=== PATIENT | female | born 1990 | race Caucasian/White ===

== ENCOUNTER → 2021-03-07 | Outpatient (CLI) | payer BC | END | disposition home or self-care (01) | LOC: LABWHC1 16:12 | PROVIDERS: ATTEND Obstetrics & Gynecology | DX: O20.0 Threatened abortion (principal); Z3A.00 Weeks of gestation of pregnancy not specified | CPT/HCPCS: 36415; 84702 ==

== ENCOUNTER → 2021-03-09 | Outpatient (CLI) | payer BC | END | disposition home or self-care (01) | LOC: LABWHC1 07:23 | PROVIDERS: ATTEND Obstetrics & Gynecology | DX: O20.0 Threatened abortion (principal); Z3A.00 Weeks of gestation of pregnancy not specified | CPT/HCPCS: 36415; 84702 ==

== ENCOUNTER → 2021-03-16 | Outpatient (CLI) | payer BC | END | disposition home or self-care (01) | LOC: LABWHC1 07:11 | PROVIDERS: ATTEND Obstetrics & Gynecology | DX: O03.9 Complete or unspecified spontaneous abortion without complication (principal); Z3A.00 Weeks of gestation of pregnancy not specified | CPT/HCPCS: 36415; 84702 ==

== ENCOUNTER → 2021-08-03 | Outpatient (CLI) | payer OTHER ==
--- NOTE | 2021-08-03 15:05 | XR ---
EXAMINATION TYPE: XR wrist complete LT, XR hand complete LT DATE OF EXAM: 08/03/2021 CLINICAL HISTORY: Fall injury with pain worse over fifth finger. TECHNIQUE: Frontal, lateral and oblique images of the left wrist and hand are obtained. A fourth lef t scaphoid view was acquired. COMPARISON: None. FINDINGS: No acute fracture or dislocation in the left wrist. The carpal joint spaces are maintained. Overlying soft tissues are unremarkable. There is acute comminuted slightly displaced fracture through proximal metadiaphysis fifth proximal p halanx. There is dorsal angulation of distal fracture fragment. Mild associated soft tissue swelling. Joint spaces in the left hand are maintained. IMPRESSION: There is acute comminuted minimally displaced fracture proximal metadiaphysis fifth prox imal phalanx.
== END | disposition home or self-care (01) ==
LOC: RADXRMAIN 14:28
PROVIDERS: ATTEND Emergency Medicine
DX: S62.617A Displaced fracture of proximal phalanx of left little finger, initial encounter for closed fracture (principal); S63.63 Sprain of interphalangeal joint of other and unspecified finger(s); X58.XXXA Exposure to other specified factors, initial encounter

== ENCOUNTER 2021-08-17 09:56 | Day surgery (SDC) | payer BC, OTHER ==
[2021-08-15 10:43] VITALS: BMI 25.7
--- NOTE | 2021-08-17 06:26 | P.HPOR ---
History of Present Illness H&P Date: 08/17/21 Chief Complaint: Left small finger proximal phalanx fracture Subjective: This is a 31 year old female that presents today for initial evaluation regarding a left small finger injury that occurred on 08/03/21. She was at work and going down a slide when her left small finger got jammed and had immediate pain and swelling. She has been in a splint since her injury after being seen at [facility]. She has been unable to bend the finger since the injury. She denies any other areas of pain or prior injury. Physical Examination: LUE: AIN/PIN/Radial/Ulnar/Median motor intact. Radial/Ulnar/Median SILT. 2+/4 Radial/Ulnar pulses palpated. 5/5 APB, 5/5 FDI. Negative Finkelsteins, negative CMC grind, negative Durkan's compression. TTP over small finger proximal phalanx with bruising and swelling. Unable to make a full fist. Imaging: X-Rays of the left small finger demonstrate a comminuted, displaced and dorsally angulated proximal phalanx fracture. Impression: 1.) Left small finger proximal phalanx fracture, displaced. Plan: Diagnosis and treatment options were discussed with the patient. I recommend surgical intervention due to the amount of displacement, angulation and rotational deformity present. Risks and benefits of surgery including bleeding, infection, damage to surrounding tissue, need for further surgery, possible need to convert to open procedure, residual numbness were discussed and the patient wished to go forward with surgery. Temporary pins will likely be in place for 4 weeks until fracture consolidation and will be removed in office, range of motion will then be initiated at that time. She is currently working and states she will be able to work in the splint. Surgery will be scheduled in the near future. -Conrad Hameed DO Orthopedic Hand/Upper Extremity Surgeon Past Medical History Past Medical History: Asthma Additional Past Medical History / Comment(s): hx sports induced asthma, fx left little finger 08/03/21-has splint on History of Any Multi-Drug Resistant Organisms: None Reported Past Surgical History: Ear Surgery Additional Past Surgical History / Comment(s): D&C 06/2021 for missed ab Past Anesthesia/Blood Transfusion Reactions: Previous Problems w/ Anesthesia, Motion Sickness Additional Past Anesthesia/Blood Transfusion Reaction / Comment(s): took long time to come out Smoking Status: Never smoker - Past Family History Mother Family Medical History: No Reported History Medications and Allergies Home Medications Medication Instructions Recorded Confirmed Type Ibuprofen 200 mg PO Q8H PRN 08/15/21 08/15/21 History Pnv No.95/Ferrous Fum/Folic AC 1 each PO DAILY 08/15/21 08/15/21 History [ Multivitamin Tablet] Allergies Allergy/AdvReac Type Severity Reaction Status Date / Time No Known Allergies Allergy Verified 08/15/21 10:35 Physical Examination Osteopathic Statement: *. No significant issues noted on an osteopathic structural exam other than those noted in the History and Physical/Consult.
[~2021-08-17 09:56] MED LIST: DEXAMETHASONE SOD PHOSPHATE 4 MG/ML 1 ML VIAL IV ONE; HYDROmorphone 0.5 MG/0.5 ML SYRINGE IVP PRN; LACTATED RINGERS 1,000 ML IV SCH; LIDOCAINE 1% (10MG/ML) FOR IV START INTRADERMA PRN; MIDAZOLAM 2 MG/2 ML VIAL IV PRN; ONDANSETRON 4 MG/2 ML VIAL IVP ONE
[2021-08-17] MEDS ORDERED: SCOPOLAMINE 1 MG/72 HR PATCH TRANSDERM ONE (11:01)
[2021-08-17] MEDS ORDERED: ROPIVACAINE 5 MG/ML 30 ML VIAL ONE (11:06)
[2021-08-17] MEDS ORDERED: DEXAMETHASONE SOD PHOSPHATE 4 MG/ML 1 ML VIAL ONE (11:06)
[2021-08-17] MEDS ORDERED: LIDOCAINE 1% INJ 10MG/ML (20 ML MDV) ONE (11:06)
[2021-08-17] MEDS ORDERED: PROPOFOL 10 MG/ML 20 ML VIAL IV ONE (11:06)
[2021-08-17] MEDS ORDERED: fentaNYL (PF) 50 MCG/ML 2 ML AMP ONE (11:06)
[2021-08-17] MEDS ORDERED: SODIUM CHLORIDE 0.9% 50 ML with ceFAZolin 2,000 MG IV ONE ×2 (11:20)
--- NOTE | 2021-08-17 12:10 | XR ---
EXAMINATION TYPE: XR finger LT, FL guidance operating room DATE OF EXAM: 08/17/2021 CLINICAL HISTORY: Left finger fracture. TECHNIQUE: Fluoroscopy. Intraoperative views left finger. COMPARISON: Outside left finger x-ray 3 days ago. FINDINGS: Fluoroscopic guidance was provided during open reduction and external fixation procedure p erformed by Dr. Hameed. A total of 22 seconds of fluoroscopic time was utilized during the procedure and 2 spot images was acquired. Intraoperative images of acquired show placement of 2 K wires through comminuted displaced fracture p roximal metadiaphysis fifth proximal phalanx. Satisfactory improved alignment is seen on intraoperati ve images obtained after reduction and fixation. IMPRESSION: As Above.
[2021-08-17 12:21] VITALS: TEMP 97.1
[2021-08-17 12:43] VITALS: RESP 16
[2021-08-17 13:13] VITALS: BP 129/82; PULSE 84
--- NOTE | 2021-08-18 14:25 | P.OP ---
Date of Procedure: 08/17/21 Preoperative Diagnosis: Left small finger proximal phalanx fracture Postoperative Diagnosis: Same Procedure(s) Performed: Closed reduction percutaneous pinning of left small finger proximal phalanx fracture Implants: 0.045 K-wire x2 Anesthesia: PHYLLIS, regional Surgeon: Conrad Hameed Estimated Blood Loss (ml): 0 Pathology: none sent Condition: stable Disposition: PACU Description of Procedure: This is a 31 year old female who sustained a displaced and angulated left small finger proximal phalanx that presents today for surgical intervention. Risks and benefits of surgery were discussed with the patient including bleeding, damage to surrounding tissue, infection, need for further surgery as well as risks of anesthesia including pulmonary embolism and even and the patient wished to proceed with surgical intervention. The patient was seen in the pre-operative area by myself. Consent and H&P were completed and updated. The correct extremity was marked in the pre-operative area by myself and all other questions were answered. Operative Narrative: The patient was brought to the operating room by the department of anesthesia. They remained on the portable stretcher and a rolling hand table was brought to the side of the operative extremity. Pre-operative time out was performed indicating the correct patient, procedure and laterality. All in the room agreed. Pre-operative antibiotics were given prior to skin incision. The patient was then drifted off to sleep by the department of anesthesia. A nonsterile tourniquet was then applied to the operative extremity and the left upper extremity was then prepped and draped in normal sterile fashion. Closed reduction maneuver was performed and under live flouroscopy reduction of previously seen dorsal angulation was corrected. Coronal and saggital alignment was corrected with manipulation. Two 0.045 K-wire were then inserted at the ulnar and radial proximal phalanx base crossing the fracture line with purchase in the distal cortex of the proximal phalanx, no articular penetration and correct intramedullary placement of pins was appreciated when checked on x-ray. K-wire ends were then bent and cut. Sterile dressing consisting of adaptic, 4x4s, and an ulnar gutter splint in the intrinsic plus position was applied. The patient was then woken by the department of anesthesia and transferred to PACU in stable condition. Post Op Plan: Patient will be seen 10-14 days post operatively and post operative dressing/splint can be taken down and new ulnar gutter splint can be applied. We will plan to keep pins in for 4 weeks and will plan to pull k-wire in office as previously discussed with the patient followed by immediate range of motion after pins are pulled. She may return to work in the splint but should not bear any weight with the hand while in the splint. Conrad Hameed D.O. Orthopedic Hand/Upper Extremity Surgeon
--- NOTE | 2021-08-19 21:19 | P.ANPRN ---
Procedure Note - Anesthesia - Nerve Block Performed Left Supraclavicular Single Time Out Performed: Yes Date of Procedure: 08/17/21 Procedure Start Time: 10:51 Procedure Stop Time: 10:56 Location of Patient: PreOp Indication: Acute Post-Operative Pain, Requested by Surgeon Sedation Type: Sedate with meaningful contact maintained Preparation: Sterile Prep Position: Supine Needle Types: Pajunk Needle Gauge: 21 Ultrasound used to visualize needle placement: Yes Ultrasound used to observe medication spread: Yes Blood Aspirated: No Pain Paresthesia on Injection Noted: No Resistance on Injection: Normal Image Stored and Saved: Yes Events: Uneventful and Well Tolerated (Ropivacaine 0.5% 20 mL plus dexamethasone 4 mg)
== END 2021-08-17 13:50 | disposition home or self-care (01) ==
LOC: OR 09:56
PROVIDERS: ATTEND Orthopaedic Surgery Hand Surgery
DX: S62.617A Displaced fracture of proximal phalanx of left little finger, initial encounter for closed fracture (principal); J45.909 Unspecified asthma, uncomplicated
CPT/HCPCS: 26735; 81025; 64415; 76942; 73140; C1713; J2250; J1100; J2405; J0690; J2001; J3010; J2795; J2704

== ENCOUNTER 2022-07-23 05:55 | Inpatient (IN) | payer BC ==
--- NOTE | 2022-07-22 19:46 | P.HPOB ---
History of Present Illness H&P Date: 07/22/22 Chief Complaint: Induction of labor This is a 32 y.o. female, 2, para 0, with an estimated date of confinement of 07/18/2022, estimated gestational age of 40-5/7 weeks, who presents for induction of labor due to post-dates. She complains of irregular contractions and sciatic pain. course has been essentially uncomplicated. Last ultrasound on 07/17/2022 showed estimated weight of 9#1oz (4117gm)(>90%). labs: Hepatitis B surface antigen-neg RPR-NR Rubella-immune Blood type-A neg Antibody screen-neg HIV-NR Hemoglobin-13.7 Random glucose-74 Rhogam given at 28 weeks 1 hr. GTT-117 GBS-neg OB Hx: . History of 1 miscarriage, s/p D&C. Mortgage Loan Underwriter Hx: No history of STDs Social Hx: . Works as teacher. Review of Systems Constitutional: Denies chills, Denies fever Eyes: denies blurred vision, denies pain Ears, nose, mouth and throat: Denies headache, Denies sore throat Cardiovascular: Denies chest pain, Denies shortness of breath Respiratory: Denies cough Gastrointestinal: Reports abdominal pain (irregular contractions) Genitourinary: Reports pelvic pain, Reports Musculoskeletal: Reports low back pain Neurological: Denies numbness, Denies weakness Psychiatric: Reports anxiety Past Medical History Past Medical History: Asthma Additional Past Medical History / Comment(s): hx sports induced asthma, fx left little finger 08/03/21-has splint on History of Any Multi-Drug Resistant Organisms: None Reported Past Surgical History: Ear Surgery Additional Past Surgical History / Comment(s): D&C 06/2021 for missed ab Past Anesthesia/Blood Transfusion Reactions: Previous Problems w/ Anesthesia, M otion Sickness Additional Past Anesthesia/Blood Transfusion Reaction / Comment(s): took long time to come out Past Psychological History: PTSD (Her mom & brother were killed in a car accident that she was also a passenger in) Smoking Status: Never smoker Past Alcohol Use History: None Reported Past Drug Use History: None Reported - Past Family History Mother Family Medical History: No Reported History Sister(s) Additional Family Medical History / Comment(s): Endometriosis Medications and Allergies Home Medications Medication Instructions Recorded Confirmed Type Pnv No.95/Ferrous Fum/Folic AC 1 each PO DAILY 08/15/21 08/17/21 History [ Multivitamin Tablet] Allergies Allergy/AdvReac Type Severity Reaction Status Date / Time No Known Allergies Allergy Verified 08/17/21 10:25 Exam Osteopathic Statement: *. No significant issues noted on an osteopathic structural exam other than those noted in the History and Physical/Consult. HEENT: within normal limits Heart: regular rate and rhythm Lungs: clear to auscultation bilaterally Abdomen: , non-tender Cervix: 1 cm/70%/-2 heart tones: 140's by doppler Extremities: neg. Jim's Assessment and Plan (1) 40 weeks gestation of Status: Acute Code(s): Z3A.40 - 40 WEEKS GESTATION OF SNOMED Code(s): 50321105 Plan: Proceed with oxytocin induction of labor. Expectant management. Epidural anesthesia if desired.
[2022-07-23] MEDS: LACTATED RINGERS 1,000 ML IV SCH ×3 (06:15→23:22)
[2022-07-23] MEDS ORDERED: TRANEXAMIC ACID IN NACL,ISO-OS 1,000 MG in EMPTY BAG 1 BAG IV PRN (06:18)
[2022-07-23] MEDS ORDERED: OXYTOCIN 10 UNIT/ML 1 ML VIAL IM PRN (06:18)
[2022-07-23] MEDS ORDERED: TERBUTALINE 1 MG/ML VIAL SQ PRN (06:18)
[2022-07-23] MEDS ORDERED: miSOPROStoL 200 MCG TAB PO PRN (06:18)
[2022-07-23] MEDS ORDERED: LIDOCAINE 1% (10MG/ML) FOR IV START INTRADERMA PRN (06:18)
[2022-07-23] MEDS ORDERED: OXYTOCIN 30 UNITS/500 ML NS 30 UNIT in SALINE 1 500ML.BAG IV SCH (06:18)
[2022-07-23] MEDS ORDERED: LIDOCAINE 0.5% (PF) 5 MG/ML (50 ML SDV) SQ PRN (06:18)
[2022-07-23] MEDS ORDERED: CARBOPROST TROMETHAMINE 250 MCG/ML 1 ML AMP IM PRN (06:18)
[2022-07-23] MEDS ORDERED: METHYLERGONOVINE 0.2 MG/ML 1 ML AMP IM PRN (06:18)
[2022-07-23 06:34] LABS: Basophils # (A) 0.1 k/uL (0-0.2); Basophils % (A) 1 %; Eosinophils # (A) 0.1 k/uL (0-0.7); Eosinophils % (A) 1 %; HCT 37.8 % (34.0-46.0); HGB 12.9 gm/dL (11.4-16.0); Lymphocytes # (A) 2.1 k/uL (1.0-4.8); Lymphocytes % (A) 23 %; MCH 30.2 pg (25.0-35.0); MCHC 34.2 g/dL (31.0-37.0); MCV 88.2 fL (80.0-100.0); Mean Platelet Volume 8.6; Monocytes # (A) 0.4 k/uL (0-1.0); Monocytes % (A) 4 %; Neutrophils # (A) 6.1 k/uL (1.3-7.7); Neutrophils % (A) 69 %; Platelet Count 209 k/uL (150-450); RBC 4.29 m/uL (3.80-5.40); RDW 13.1 % (11.5-15.5); WBC 8.9 k/uL (3.8-10.6)
[2022-07-23] MEDS ORDERED: BUTORPHANOL 1 MG/ML 1 ML VIAL IV PRN (11:08)
[2022-07-23] MEDS ORDERED: ROPIVACAINE 5 MG/ML 20 ML AMPULE ONE (12:48)
[2022-07-23] MEDS ORDERED: SODIUM CHLORIDE 0.9% 100 ML BAG ONE (12:48)
[2022-07-23] MEDS ORDERED: fentaNYL (PF) 50 MCG/ML 5 ML AMP ONE (12:48)
--- NOTE | 2022-07-23 23:06 | P.PROBDLV ---
Vaginal Delivery Note - . Vaginal Delivery Note: The patient did receive epidural anesthesia during labor. She underwent oxytocin induction of labor with artificial rupture membranes with clear fluid noted. Once reaching complete dilation she began pushing. She pushed for approximately 2-1/2 hours. 's head came to a crown. She did have an episode where heart tones went to the 90s and stayed that way for a couple minutes. At this point perineum was anesthetized with 1% lidocaine and a midline episiotomy was cut. With one further push, the 's head delivered across the perineum followed by the anterior shoulder. Nose and mouth were bulb suctioned. was placed on mother's abdomen and then cord was clamped and cut. Infant was taken to warmer for evaluation. A viable female was noted with scores of 7 at 1 minute and 8 at 5 minutes and infant weight of 8 pounds 2.5 ounces. Placenta delivered shortly thereafter, intact, with a three-vessel cord. Uterus contracted fairly well after oxytocin was given and uterine massage was carried out. Perineum showed a midline episiotomy with no further extension. This area was anesthetized with 1% lidocaine and sutured with 3-0 and 2-0 Vicryl suture in the usual multilayer fashion. Estimated blood loss is approximately 200 mL's. Both mother and are in stable condition.
[2022-07-23] MEDS ORDERED: diphenhydrAMINE 50 MG/ML 1 ML VIAL IVP PRN ×2 (23:15)
[2022-07-23] MEDS ORDERED: diphenhydrAMINE 50 MG CAP PO PRN (23:15)
[2022-07-23] MEDS ORDERED: ZOLPIDEM 5 MG TAB PO PRN (23:15)
[2022-07-23] MEDS ORDERED: BENZOCAINE/MENTHOL SPRAY 1 GM/SPRAY AEROSOL TOPICAL PRN (23:15)
[2022-07-23] MEDS ORDERED: diphenhydrAMINE 25 MG CAP PO PRN (23:15)
[2022-07-23] MEDS ORDERED: LANOLIN CREAM 5 GM TUBE TOPICAL PRN (23:15)
[2022-07-23] MEDS ORDERED: HYDROCORTISONE 2.5% RECTAL CREAM 30 GM TUBE RECTAL PRN (23:15)
[2022-07-23] MEDS ORDERED: SIMETHICONE 80 MG CHEWABLE PO PRN (23:15)
[2022-07-24] MEDS: IBUPROFEN 600 MG TAB PO PRN ×4 (02:00→23:17)
[2022-07-24] MEDS: ACETAMINOPHEN TAB 325 MG TAB PO PRN (06:21)
[2022-07-24 07:14] LABS: Basophils % (A) 0 %; Eosinophils % (A) 0 %; HGB 11.6 gm/dL (11.4-16.0); Lymphocytes # (A) 1.5 k/uL (1.0-4.8); Lymphocytes % (A) 6 %; MCH 30.4 pg (25.0-35.0); MCHC 34.2 g/dL (31.0-37.0); MCV 89.1 fL (80.0-100.0); Mean Platelet Volume 8.9; Monocytes # (A) 0.7 k/uL (0-1.0); Monocytes % (A) 3 %; Neutrophils # (A) 20.9 k/uL (1.3-7.7); Neutrophils % (A) 90 %; Platelet Count 183 k/uL (150-450); RBC 3.82 m/uL (3.80-5.40); RDW 13.1 % (11.5-15.5); WBC 23.3 k/uL (3.8-10.6)
[2022-07-24] MEDS: SENNOSIDES-DOCUSATE SODIUM 1 EACH TAB PO SCH ×2 (07:47→23:18)
--- NOTE | 2022-07-24 08:25 | P.PNOBGVD ---
Subjective - Subjective Principal diagnosis: Status post vaginal delivery day #1 Interval history: Patient is doing okay. She is ambulating. Lochia is slowing. Her pain is fairly well controlled. She is working on breast-feeding. Patient reports: Reports appetite normal, Reports voiding normally, Reports pain well controlled, Reports ambulating normally [place]: doing well, nursing well Objective - Latest Vital Signs Latest vital signs: Vital Signs Temp Pulse Resp BP Pulse Ox 07/24/22 08:00 97.5 F L 96 16 104/67 07/24/22 03:19 98.8 F 96 19 115/71 96 07/24/22 01:10 98.4 F 95 16 111/63 07/24/22 00:40 87 16 125/74 07/24/22 00:10 96 16 125/67 07/23/22 23:55 101 H 16 116/68 07/23/22 23:40 94 16 121/71 07/23/22 23:25 100 16 119/71 07/23/22 23:10 98.4 F 96 17 114/66 99 Intake and Output 07/23/22 07/24/22 07/24/22 22:59 06:59 14:59 Intake Total 32.233 167 Output Total 75 1020 Balance -42.767 853 Intake: Intake, IV Titration 32.233 167 Amount Oxytocin 30 Units/500 ml 32.233 167 Ns 30 unit In Saline 1 500ml.bag @ Per Protocol IV .Q0M [facility] Rx#:[id number] Output: Urine 75 575 Estimated Blood Loss 200 Output, Quantitative 245 Blood Loss Other: # Voids 1 1 - Exam Extremities: Present: normal. Absent: tenderness, edema Abdomen: Present: normal appearance, soft. Absent: distention, tenderness Uterus: Present: normal, firm. Absent: tenderness - Labs Labs: Abnormal Lab Results - Last 24 Hours (Table) 07/24/22 Range/Units 06:25 WBC 23.3 H (3.8-10.6) k/uL Neutrophils # 20.9 H (1.3-7.7) k/uL Assessment and Plan Assessment: Status post vaginal delivery day #1 (1) 40 weeks gestation of Current Visit: No Status: Acute Code(s): Z3A.40 - 40 WEEKS GESTATION OF SNOMED Code(s): 93015404 Plan: Continue with care today. Anticipate discharge home tomorrow. Will repeat CBC tomorrow morning to elevated white count. Patient is asymptomatic and has had no fevers.
[2022-07-24] MEDS: PRENATAL VIT-IRON-FOLIC ACID 1 EACH TABLET PO SCH (10:37)
[2022-07-25] MEDS: ACETAMINOPHEN TAB 325 MG TAB PO PRN (03:54)
[2022-07-25 06:29] LABS: Basophils % (A) 0 %; Eosinophils # (A) 0.1 k/uL (0-0.7); Eosinophils % (A) 1 %; HCT 31.5 % (34.0-46.0); HGB 10.6 gm/dL (11.4-16.0); Lymphocytes # (A) 2.2 k/uL (1.0-4.8); Lymphocytes % (A) 18 %; MCH 30.4 pg (25.0-35.0); MCHC 33.7 g/dL (31.0-37.0); MCV 90.3 fL (80.0-100.0); Mean Platelet Volume 9.1; Monocytes # (A) 0.5 k/uL (0-1.0); Monocytes % (A) 4 %; Neutrophils # (A) 9.4 k/uL (1.3-7.7); Neutrophils % (A) 76 %; Platelet Count 187 k/uL (150-450); RBC 3.49 m/uL (3.80-5.40); RDW 13.2 % (11.5-15.5); WBC 12.4 k/uL (3.8-10.6)
--- NOTE | 2022-07-25 07:43 | P.DS ---
Providers Date of admission: 07/23/22 05:55 Expected date of discharge: 07/25/22 Attending physician: Laura Rosario Primary care physician: Stated None - Discharge Diagnosis(es) (1) 40 weeks gestation of Current Visit: No Status: Acute Hospital Course: This is a 32-year-old female 2 para 0 at 40-5/7 weeks who presented for induction of labor. She underwent oxytocin induction of labor and delivered vaginally a viable female on 07/23/2022 with scores of 7 at 1 minute and 8 at 5 minutes and weight of 8 pounds 2.5 ounces. Her course was essentially uncomplicated. Her white count was elevated on day #1 but has come down on day #2. Her lochia is moderate. She is working on breast-feeding. Pain is fairly well controlled. Vital signs are stable. Abdomen is soft with fundus firm and nontender. Extremities show negative Homans. Impression is status post vaginal delivery day #2. Plan is to discharge home today. Routine instructions are given. She is advised to follow up in the office in 6 weeks for check. She is advised to call the office if she has any further questions or concerns prior to her appointment time. She will be given a prescription for ibuprofen and a breast pump. Procedures: Oxytocin induction of labor Spontaneous vaginal delivery of a viable female infant on 07/23/2022 Patient Condition at Discharge: Stable Plan - Discharge Summary New Discharge Prescriptions: New Ibuprofen [Motrin] 600 mg PO Q6HR PRN #60 tab PRN Reason: Mild Pain (Scale 1 To 3) Continue Pnv No.95/Ferrous Fum/Folic AC [ Multivitamin Tablet] 1 each PO DAILY Discharge Medication List Pnv No.95/Ferrous Fum/Folic AC [ Multivitamin Tablet] 1 each PO DAILY 08/15/21 [History] Ibuprofen [Motrin] 600 mg PO Q6HR PRN #60 tab 07/25/22 [Rx] Follow up Appointment(s)/Referral(s): Laura Rosario DO [Doctor of Osteopathic Medicine] - 09/04/22 4:00 pm Activity/Diet/Wound Care/Special Instructions: Instructions 1. Do not begin any exercise program for 3 weeks. 2. Do not resume sexual relations for 3 weeks or longer if uncomfortable. 3. You may take tub baths or showers at any time. 4. You may use tampons if desired after 3 weeks. 5. Keep the area of episiotomy (stitches) clean and dry. 6. If you are not nursing, wear a good fitting, supportive bra during the day and limit fluid intake for at least 1 week to prevent breast engorgement. 7. Call the office, [phone], within the next week to make appointment for your 6 week checkup if it has not already been made. 8. Report any of the following occurrences to the doctor promptly: a. Heavy, excessive bleeding b. Chills, fever c. Burning or frequency of urination d. Pain or redness and breasts if nursing e. Increasing pain or swelling in episiotomy (stitches). In addition to the above instructions, the following additional should be followed: 1. No heavy lifting or straining (exercising) until after 6 week checkup. 2. Keep abdominal incision clean and dry: You may wear a dressing if more comfortable. 3. Make office appointment for 10 days after going home or as instructed by her doctor. Discharge Disposition: HOME SELF-CARE
[2022-07-25 07:58] VITALS: BP 113/78; PULSE 95; RESP 18; TEMP 97.7
[2022-07-25] MEDS: IBUPROFEN 600 MG TAB PO PRN (08:21)
[2022-07-25] MEDS: SENNOSIDES-DOCUSATE SODIUM 1 EACH TAB PO SCH (08:22)
[2022-07-25] MEDS: PRENATAL VIT-IRON-FOLIC ACID 1 EACH TABLET PO SCH (08:50)
== END 2022-07-25 09:36 | disposition home or self-care (01) | DRG 807 ==
LOC: 4FBP 05:55
PROVIDERS: ADMIT Obstetrics & Gynecology; ATTEND Obstetrics & Gynecology
PROC: 10E0XZZ Delivery of Products of Conception, External Approach (ICD-10-PCS; principal; 2022-07-23)
PROC: 0W8NXZZ Division of Female Perineum, External Approach (ICD-10-PCS; 2022-07-23)
PROC: 3E033VJ Introduction of Other Hormone into Peripheral Vein, Percutaneous Approach (ICD-10-PCS; 2022-07-23)
PROC: 10907ZC Drainage of Amniotic Fluid, Therapeutic from Products of Conception, Via Natural or Artificial Opening (ICD-10-PCS; 2022-07-23)
PROC: 4A0HXCZ Measurement of Products of Conception, Cardiac Rate, External Approach (ICD-10-PCS; 2022-07-23)
DX: O48.0 Post-term pregnancy (principal); Z37.0 Single live birth; O99.344 Other mental disorders complicating childbirth; O99.52 Diseases of the respiratory system complicating childbirth; F43.10 Post-traumatic stress disorder, unspecified; J45.909 Unspecified asthma, uncomplicated; Z3A.40 40 weeks gestation of pregnancy
CPT/HCPCS: 85025; 86850; 86900; 86901; 88307

== ENCOUNTER → 2023-04-07 | Outpatient (CLI) | payer BC ==
--- NOTE | 2023-04-07 17:10 | CT ---
EXAMINATION TYPE: CT sinus wo con CT DLP: 443 mGycm, Automated exposure control for dose reduction was used. DATE OF EXAM: 04/07/2023 4:50 PM COMPARISON: None. CLINICAL INDICATION:Female, 33 years old with history of J01.00 ACUTE MAXILLARY SINUSITIS, UNSPECIFIE D; , chronic sinus congestion TECHNIQUE: Multiple thin axial images were obtained through the paranasal sinuses without the use of IV contrast. Additional coronal and sagittal reformatted images were submitted for evaluation. Contrast used: none Oral contrast used: none FINDINGS: Frontal sinuses: Hypoplastic left frontal sinus. The right frontal sinuses normally developed and aer ated.. Frontal Recess: Clear right and absent left. Maxillary Sinuses: Normally developed and aerated. Maxillary Infundibula(OMC): Clear, No Tammy cells identified. Ethmoid sinuses: Normally developed and aerated. Ethmoidal notch: Protected left and unprotected righ t anterior ethmoidal arteries. Sphenoid sinuses: Normally developed and aerated. There is sellar sphenoid sinus pneumatization witho ut evidence of dehiscence. No dehiscence of carotid canal. No evidence of optic nerve dehiscence wit hin the sphenoid sinus. No evidence of Onodi cells. Sphenoethmoidal recesses: Clear. Nasal septum: Within normal limits.. Nasal Turbinates: Within normal limits. Mastoid air cells & middle ears: The air cells are clear. The middle ears are grossly unremarkable. Modified Soft tissues & Brain: Partially seen without gross abnormality. Globes are intact. Other: Cribriform plate demonstrates symmetric Keros classification type 2 cribriform plate. No evidence of bony dehiscence of skull base. Lamina papyracea is intact without evidence of remote orbital fracture or orbital prolapse into the e thmoid sinus. IMPRESSION: 1. No significant mucosal sinus disease. 2. The ostiomeatal units, frontonasal and sphenoethmoidal recesses are clear.
== END | disposition home or self-care (01) ==
LOC: RADCTMAIN 16:34
PROVIDERS: ATTEND Family Medicine
DX: J01.00 Acute maxillary sinusitis, unspecified (principal)
CPT/HCPCS: 70486

== ENCOUNTER 2024-07-18 14:13 | Inpatient (IN) | payer BC ==
[2024-07-18] MEDS ORDERED: OXYTOCIN 10 UNIT/ML 1 ML VIAL IM PRN (14:59)
[2024-07-18] MEDS ORDERED: miSOPROStoL 200 MCG TAB PO PRN (14:59)
[2024-07-18] MEDS ORDERED: CARBOPROST TROMETHAMINE 250 MCG/ML 1 ML AMP IM PRN (14:59)
[2024-07-18] MEDS ORDERED: METHYLERGONOVINE 0.2 MG/ML 1 ML AMP IM PRN (14:59)
[2024-07-18] MEDS ORDERED: miSOPROStoL 200 MCG TAB RECTAL PRN (14:59)
[2024-07-18] MEDS ORDERED: TERBUTALINE 1 MG/ML VIAL SQ PRN (14:59)
[2024-07-18] MEDS: LACTATED RINGERS 1,000 ML IV SCH (15:30)
[2024-07-18 15:50] LABS: Basophils % (A) 0 %; Eosinophils % (A) 0 %; HCT 38.3 % (34.0-46.0); HGB 12.6 gm/dL (11.4-16.0); Lymphocytes # (A) 1.9 k/uL (1.0-4.8); Lymphocytes % (A) 21 %; MCH 29.5 pg (25.0-35.0); MCHC 32.8 g/dL (31.0-37.0); Mean Platelet Volume 8.1; Monocytes # (A) 0.4 k/uL (0-1.0); Monocytes % (A) 4 %; Neutrophils # (A) 6.6 k/uL (1.3-7.7); Neutrophils % (A) 72 %; Platelet Count 203 k/uL (150-450); RBC 4.26 m/uL (3.80-5.40); RDW 13.2 % (11.5-15.5); WBC 9.1 k/uL (3.8-10.6)
[2024-07-18] MEDS: AMPICILLIN 2,000 MG in SODIUM CHLORIDE 0.9% 100 ML IVPB STA (16:08)
[2024-07-18] MEDS: OXYTOCIN 30 UNITS/500 ML NS 30 UNIT in SALINE 1 500ML.BAG IV SCH (16:09)
[2024-07-18] MEDS: AMPICILLIN 1,000 MG in SODIUM CHLORIDE 0.9% 50 ML IVPB SCH (19:59)
[2024-07-18] MEDS ORDERED: ROPIVACAINE 5 MG/ML 30 ML VIAL ONE (20:10)
[2024-07-18] MEDS ORDERED: SODIUM CHLORIDE 0.9% 250 ML BAG ONE (20:10)
[2024-07-18] MEDS ORDERED: fentaNYL (PF) 50 MCG/ML 5 ML AMP ONE (20:10)
[2024-07-18] MEDS: LIDOCAINE 0.5% (PF) 5 MG/ML (50 ML SDV) SQ PRN (20:50)
--- NOTE | 2024-07-18 21:07 | P.HPOB ---
History of Present Illness H&P Date: 07/18/24 Chief Complaint: SROM 34 year old presents at 40 weeks and 2 days with spontaneous rupture of membranes at 1 AM. She presented to labor and delivery around noon and was 2 to 3 cm dilated, 50% effaced, and -2 station. She was ruthy irregularly. heart tones 135 with moderate variability and reactive, category 1. Review of Systems All systems: negative Constitutional: Denies chills, Denies fever Eyes: denies blurred vision, denies pain Ears, nose, mouth and throat: Denies headache, Denies sore throat Cardiovascular: Denies chest pain, Denies shortness of breath Respiratory: Denies cough Gastrointestinal: Denies abdominal pain, Denies diarrhea, Denies nausea, Denies vomiting Genitourinary: Denies dysuria, Denies hematuria Musculoskeletal: Denies myalgias Integumentary: Denies pruritus, Denies rash Neurological: Denies numbness, Denies weakness Psychiatric: Denies anxiety, Denies depression Endocrine: Denies fatigue, Denies weight change Past Medical History Past Medical History: Asthma Additional Past Medical History / Comment(s): hx sports induced asthma, fx left little finger 08/03/21 History of Any Multi-Drug Resistant Organisms: None Reported Past Surgical History: Ear Surgery Additional Past Surgical History / Comment(s): D&C 06/2021 for missed ab Past Anesthesia/Blood Transfusion Reactions: Previous Problems w/ Anesthesia, Motion Sickness Additional Past Anesthesia/Blood Transfusion Reaction / Comment(s): took long time to come out Past Psychological History: PTSD Smoking Status: Never smoker Past Alcohol Use History: None Reported Past Drug Use History: None Reported - Past Family History Mother Family Medical History: No Reported History Sister(s) Additional Family Medical History / Comment(s): Endometriosis Medications and Allergies Home Medications Medication Instructions Recorded Confirmed Type Pnv No.95/Ferrous Fum/Folic AC 1 each PO DAILY 08/15/21 07/18/24 History [ Multivitamin Tablet] Allergies Allergy/AdvReac Type Severity Reaction Status Date / Time No Known Allergies Allergy Verified 07/18/24 14:57 Exam Osteopathic Statement: *. No significant issues noted on an osteopathic structural exam other than those noted in the History and Physical/Consult. Vital Signs Temp Pulse Resp BP Pulse Ox 07/18/24 15:52 97.6 F 100 18 117/71 98 Intake and Output 07/18/24 07/18/24 07/18/24 06:59 14:59 22:59 Other: Weight 83.915 kg 83.915 kg Heart: Regular rate and rhythm Lungs: Clear to auscultation bilaterally Abdomen: Soft, nontender Extremities: Negative Homans sign Results Result Diagrams: 07/18/24 15:30 Assessment and Plan (1) Spontaneous rupture of membranes Current Visit: Yes Status: Acute Code(s): [id number] - SNOMED Code(s): 585842194 (2) 40 weeks gestation of Current Visit: No Status: Acute Code(s): Z3A.40 - 40 WEEKS GESTATION OF SNOMED Code(s): 84432474 Plan: 1. Admit to [facility] 2. Pitocin augmentation 3. Antibiotics for prolonged rupture 4. Anticipate normal vaginal delivery
[2024-07-18] MEDS ORDERED: diphenhydrAMINE 25 MG CAP PO PRN (21:12)
[2024-07-18] MEDS ORDERED: ZOLPIDEM 5 MG TAB PO PRN (21:12)
[2024-07-18] MEDS ORDERED: diphenhydrAMINE 50 MG CAP PO PRN (21:12)
[2024-07-18] MEDS ORDERED: SIMETHICONE 80 MG CHEWABLE PO PRN (21:12)
[2024-07-18] MEDS ORDERED: LANOLIN CREAM 1 GM TUBE TOPICAL PRN (21:12)
[2024-07-18] MEDS ORDERED: HYDROCORTISONE 2.5% RECTAL CREAM 30 GM TUBE RECTAL PRN (21:12)
[2024-07-18] MEDS ORDERED: diphenhydrAMINE 50 MG/ML 1 ML VIAL IVP PRN ×2 (21:12)
--- NOTE | 2024-07-18 21:12 | P.PROBDLV ---
Vaginal Delivery Note - . Vaginal Delivery Note: 34 year old presents at 40 weeks and 2 days with spontaneous rupture of membranes at 1 AM. She presented to labor and delivery around noon and was 2 to 3 cm dilated, 50% effaced, and -2 station. She was ruthy irregularly. heart tones 135 with moderate variability and reactive, category 1. Pitocin augmentation was started and a biotics were started for prolonged rupture of membranes. Patient did have a forebag and that was broken at around 1700, clear fluid still noted. Patient then got quite uncomfortable got an epidural when she was 6 cm and soon was completely dilated at 2039. She pushed, delivered a viable female infant over intact perineum under epidural anesthesia at 2044. Head delivered OA, anterior shoulder was the left shoulder, attempted to be delivered with maternal effort, the shoulder was not moving. Patient was laid all the way supine and put in [place] position. Attempted to deliver the posterior shoulder but then went back to the anterior shoulder and it delivered with gentle downward guidance followed by posterior shoulder and rest of body. Nose and mouth bulb suction, clear clamped cut, placed on mother's abdomen. Apgars 9, 9, weight 8 pounds 14 ounces. Placenta delivered spontaneously, intact with three-vessel cord at 2049. Vagina, cervix, perineum were inspected. Second-degree midline laceration was repaired with 3-0 Vicryl. Estimated blood loss 300 mL. Mother and baby in stable condition.
[2024-07-18] MEDS ORDERED: OXYTOCIN 30 UNITS/500 ML NS 30 UNIT in SALINE 1 500ML.BAG IV SCH (21:15)
[2024-07-18] MEDS: IBUPROFEN 800 MG TAB PO SCH (22:00)
[2024-07-18] MEDS: BENZOCAINE/MENTHOL SPRAY 1 GM/SPRAY AEROSOL TOPICAL PRN (23:42)
[2024-07-19] MEDS: ACETAMINOPHEN TAB 500 MG TAB PO SCH (05:11)
[2024-07-19 07:03] LABS: Basophils % (A) 0 %; Eosinophils % (A) 0 %; HGB 12.3 gm/dL (11.4-16.0); Lymphocytes # (A) 2.1 k/uL (1.0-4.8); Lymphocytes % (A) 11 %; MCHC 32.3 g/dL (31.0-37.0); MCV 92.7 fL (80.0-100.0); Mean Platelet Volume 8.8; Monocytes # (A) 0.8 k/uL (0-1.0); Monocytes % (A) 4 %; Neutrophils # (A) 15.7 k/uL (1.3-7.7); Neutrophils % (A) 83 %; Platelet Count 200 k/uL (150-450); RDW 13.2 % (11.5-15.5); WBC 18.9 k/uL (3.8-10.6)
[2024-07-19] MEDS: SENNOSIDES-DOCUSATE SODIUM 1 EACH TAB PO SCH (07:57)
--- NOTE | 2024-07-19 10:39 | P.DS ---
Providers Date of admission: 07/18/24 14:30 Expected date of discharge: 07/19/24 Attending physician: Keila Santamaria MD Primary care physician: Stated None Hospital Course: Ms. Trevizo is a 34 year old PPD#1 s/p . There was a second degree perineal laceration that was repaired in the usual fashion. The patient is doing well this morning and had no acute events overnight. She has no complaints this morning. She reports minimal lochia, passing flatus, voiding without difficulty, ambulating, and eating/drinking without nausea or vomiting. doing well at bedside. She denies chest pain, shortness of breathing, fevers, or chills overnight. She denies pain or swelling in the legs. restrictions are reviewed with the patient including pelvic rest for 6 weeks. The patient is encouraged to call the office if she experiences any heavy bleeding, foul-smelling discharge, breast complaints, or any if she has any other concerns. She will follow up in the office in 6 weeks for exam. All questions are answered. Assessment: 34 year old PPD#1 s/p Patient Condition at Discharge: Good Plan - Discharge Summary New Discharge Prescriptions: No Action Pnv No.95/Ferrous Fum/Folic AC [ Multivitamin Tablet] 1 each PO DAILY Discharge Medication List Pnv No.95/Ferrous Fum/Folic AC [ Multivitamin Tablet] 1 each PO DAILY 08/15/21 [History] Follow up Appointment(s)/Referral(s): Keila Santamaria MD [STAFF PHYSICIAN] - 09/01/24 1:15 pm Activity/Diet/Wound Care/Special Instructions: Instructions 1. Do not begin any exercise program for 3 weeks. 2. Do not resume sexual relations for 6 weeks or longer if uncomfortable. 3. You may take tub baths or showers at any time. 4. You may use tampons if desired after 6 weeks. 5. Keep any areas repaired with stitches clean and dry. 6. If you are not nursing, wear a good fitting, supportive bra during the day and limit fluid intake for at least 1 week to prevent breast engorgement. 7. Call the office, , within the next week to make appointment for your 6 week checkup if it has not already been made. 8. Report any of the following occurrences to the doctor promptly: a. Heavy, excessive bleeding b. Chills, fever c. Burning or frequency of urination d. Pain or redness and breasts if nursing e. Increasing pain or swelling of vulva (stitches). In addition to the above instructions, the following additional should be followed: 1. No heavy lifting or straining (exercising) until after 6 week checkup. 2. Keep abdominal incision clean and dry: You may wear a dressing if more com fortable. 3. Make office appointment for 2 weeks after delivery date. Discharge Disposition: HOME SELF-CARE
[2024-07-19 16:22] VITALS: BP 123/77; PULSE 96; RESP 15; TEMP 98.4
== END 2024-07-19 21:00 | disposition home or self-care (01) | DRG 807 ==
LOC: FBPOP 14:13 → 4FBP 14:30
PROVIDERS: ADMIT Obstetrics & Gynecology; ATTEND Obstetrics & Gynecology
PROC: 10E0XZZ Delivery of Products of Conception, External Approach (ICD-10-PCS; principal; 2024-07-18)
PROC: 10907ZC Drainage of Amniotic Fluid, Therapeutic from Products of Conception, Via Natural or Artificial Opening (ICD-10-PCS; principal; 2024-07-18)
PROC: 0KQM0ZZ Repair Perineum Muscle, Open Approach (ICD-10-PCS; principal; 2024-07-18)
DX: O42.02 Full-term premature rupture of membranes, onset of labor within 24 hours of rupture (principal); J45.909 Unspecified asthma, uncomplicated; O99.52 Diseases of the respiratory system complicating childbirth; O48.0 Post-term pregnancy; O66.0 Obstructed labor due to shoulder dystocia; O70.1 Second degree perineal laceration during delivery; Z86.59 Personal history of other mental and behavioral disorders; Z3A.40 40 weeks gestation of pregnancy; Z37.0 Single live birth
CPT/HCPCS: 85025; 86850; 86900; 86901